=== PATIENT | female | born 1995 | race Hispanic/Latino ===

== ENCOUNTER 2023-10-31 22:18 | Emergency (ER) | payer BC ==
--- OUTSIDE RECORDS SUMMARY | 2023-10-31 22:21 | XMS REPORT | Continuity of Care Document ---
Author Name Unknown Address [address] [facility] [address] [place] [address] [facility] thconnect Address [address] [facility] [address] [place] [address] Care Team Providers Care Steel Analyst Name Role Phone Jen Cottrell Primary Care Physician [phone] Jen Cottrell Attending Clinician [phone] JEN PERRY Attending Clinician Unavailable YOUSUF SHERMAN Attending Clinician Unavailable HANNAH MILES Attending Clinician Cathy vailable Payers Payer Name Policy Type Policy Number Effective Date Expirati on Date Source Problems Condition Name Condition Details Condition Category Status Onset Date Resolution Date Last Treatment Date Treating Clinician Comments Source Rubella immune Rubella immune Disease Active 01-16 00:00: 00 [facility] 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 joel sites 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 joel sites Disease Active 01-16 00:00: 00 [facility] UTI (urinary tract infection) UTI (urinary tract infection) Disease Active 01-16 00:00: 00 [facility] Allergies, Adverse Reactions, Alerts Allergy Name Allergy Type Status Severity Reaction(s) Onset Date Inactive Date Treating Clinician Comments Source NO KNOWN ALLERGIE S Drug Class Active [facility] Social History Social Habit Start Date Stop Date Quantity Comments Source History SDOH Alcohol Frequency [facility] History SDOH Alcohol Std Drinks [facility] History SDOH Alcohol Binge [facility] Exposure to SARS-CoV-2 (event) Yes [facility] Alcohol intake 2021-04-23 00:00:00 2021-04-23 00:00:00 Current drinker of alcohol (finding) [facility] Alcohol Comment 2021-02-07 00:00:00 2021-02-07 00:00:00 Weekly [facility] Sex Assigned At 1995 00:00:00 1995 00:00:00 [facility] Smoking Status Start Date Stop Date Source Never smoker [facility] Medications Ordered Medication Name Filled Medication Name Start Date Stop Date Current Medication? Ordering Clinician Indication Dosage Frequency Signature (SIG) Comments Components Source TAKE ONE (1) TABLET(S) BY MOUTH TODAY, THEN ONE (1) TABLET(S) IN 48 TO 72 HOURS. 03-10 00:00: 00 No 150 TAKE 1 TABLET DAILY. 03-04 00:00: 00 No 2535 TAKE ONE (1) TABLET(S) BY MOUTH DAILY. 03-03 00:00: 00 No 10 Lexapro 10 mg tablet 01-01 00:00: 00 No 1mg TAKE ONE-HALF (1/2) TABLET(S) BY MOUTH ONCE A DAY FOR 7 DAYS, THEN INCREASE TO ONE (1) TABLET(S) ONCE A DAY THE NEXT 7 DAYS. 01-01 00:00: 00 No Dose Unknown 01-01 00:00: 00 No TAKE ONE-HALF (1/2) TABLET(S) BY MOUTH ONCE A DAY FOR 7 DAYS, THEN INCREASE TO ONE (1) TABLET(S) ONCE A DAY THE NEXT 7 DAYS. 01-01 00:00: 00 No Dose Unknown 0 01-01 00:00: 00 No Dose Unknown 12-23 00:00: 00 No Dose Unknown 12-23 00:00: 00 No fluconazole 150 mg tablet 0 12-22 00:00: 00 No mg Dose Unknown 0 12-22 00:00: 00 No fluconazole 150 mg tablet 12-22 00:00: 00 No mg Dose Unknown 12-22 00:00: 00 No Lexapro 10 mg tablet 12-18 00:00: 00 No 1mg Lexapro 10 mg tablet 12-18 00:00: 00 No 1mg Dose Unknown 12-16 00:00: 00 No Dose Unknown 12-16 00:00: 00 No No known medications 04-23 14:30: 15 No [facility] Depo-Doula a 150 mg/mL intramuscul ar syringe 11-09 00:00: 00 No 1mg/mL Depo-Doula a 150 mg/mL intramuscul ar syringe 11-09 00:00: 00 No 1mg/mL Vital Signs Vital Name Observation Time Observation Value Comments S ource Systolic blood pressure 2021-04-23 19:10:00 119 mm[Hg] [facility] Diastolic blood pressure 2021-04-23 19:10:00 81 mm[Hg] [facility] Heart rate 2021-04-23 19:10:00 76 /min [facility] Body temperature 2021-04-23 19:10:00 36.94 Eloisa [facility] Body height 2021-04-23 19:10:00 160 cm [facility] Body weight 2021-04-23 19:10:00 70.308 kg [facility] BMI 2021-04-23 19:10:00 27.46 kg/m2 [facility] Oxygen saturation in Arterial blood by Pulse oximetry 2021-04-23 19:10:00 98 /min [facility] BP Systolic 2022-03-11 14:49:00 121 mm[Hg] BP Diastolic 2022-03-11 14:49:00 82 mm[Hg] Weight Measured 2022-03-11 14:49:00 186.40 pounds Height Measured 2022-03-11 14:49:00 64.00 inches Body Temperature 2022-03-11 14:49:00 98.60 degrees Heart Rate 2022-03-11 14:49:00 102.00 /min Respiratory Rate 2022-03-11 14:49:00 16.00 /min BP Systolic 2022-03-04 08:22:00 BP Diastolic 2022-03-04 08:22:00 Weight Measured 2022-03-04 08:22:00 184.00 pounds Height Measured 2022-03-04 08:22:00 64.00 inches Body Temperature 2022-03-04 08:22:00 Heart Rate 2022-03-04 08:22:00 Respiratory Rate 2022-03-04 08:22:00 BP Systolic 2022-01-29 13:26:00 136 mm[Hg] BP Diastolic 2022-01-29 13:26:00 79 mm[Hg] Weight Measured 2022-01-29 13:26:00 180.00 pounds Height Measured 2022-01-29 13:26:00 64.00 inches Body Temperature 2022-01-29 13:26:00 98.50 degrees Heart Rate 2022-01-29 13:26:00 85.00 /min Respiratory Rate 2022-01-29 13:26:00 BP Systolic 2021-12-16 14:52:00 138 mm[Hg] BP Diastolic 2021-12-16 14:52:00 84 mm[Hg] Weight Measured 2021-12-16 14:52:00 173.60 pounds Height Measured 2021-12-16 14:52:00 64.00 inches Body Temperature 2021-12-16 14:52:00 Heart Rate 2021-12-16 14:52:00 91.00 /min Respiratory Rate 2021-12-16 14:52:00 BP Systolic 2020-08-24 08:15:00 116 mm[Hg] BP Diastolic 2020-08-24 08:15:00 80 mm[Hg] Weight Measured 2020-08-24 08:15:00 170.60 pounds Height Measured 2020-08-24 08:15:00 64.00 inches Body Temperature 2020-08-24 08:15:00 98.50 degrees Heart Rate 2020-08-24 08:15:00 91.00 /min Respiratory Rate 2020-08-24 08:15:00 Weight Measured 2020-06-05 08:08:00 170.20 pounds Height Measured 2020-06-05 08:08:00 64.00 inches Body Temperature 2020-06-05 08:08:00 98.10 degrees Heart Rate 2020-06-05 08:08:00 72.00 /min Respiratory Rate 2020-06-05 08:08:00 17.00 /min BP Systolic 2020-06-05 08:08:00 116 mm[Hg] BP Diastolic 2020-06-05 08:08:00 75 mm[Hg] BP Systolic 2020-05-29 08:13:00 125 mm[Hg] BP Diastolic 2020-05-29 08:13:00 87 mm[Hg] Weight Measured 2020-05-29 08:13:00 172.00 pounds Height Measured 2020-05-29 08:13:00 64.00 inches Body Temperature 2020-05-29 08:13:00 97.90 degrees Heart Rate 2020-05-29 08:13:00 76.00 /min Respiratory Rate 2020-05-29 08:13:00 BP Systolic 2020-05-03 09:19:00 127 mm[Hg] BP Diastolic 2020-05-03 09:19:00 80 mm[Hg] Weight Measured 2020-05-03 09:19:00 170.20 pounds Height Measured 2020-05-03 09:19:00 64.00 inches Body Temperature 2020-05-03 09:19:00 97.80 degrees Heart Rate 2020-05-03 09:19:00 73.00 /min Respiratory Rate 2020-05-03 09:19:00 BP Systolic 2019-12-05 11:18:00 124 mm[Hg] BP Diastolic 2019-12-05 11:18:00 80 mm[Hg] Weight Measured 2019-12-05 11:18:00 168.20 pounds Height Measured 2019-12-05 11:18:00 64.00 inches Body Temperature 2019-12-05 11:18:00 98.80 degrees Heart Rate 2019-12-05 11:18:00 78.00 /min Respiratory Rate 2019-12-05 11:18:00 BP Systolic 2019-09-09 08:29:00 123 mm[Hg] BP Diastolic 2019-09-09 08:29:00 78 mm[Hg] Weight Measured 2019-09-09 08:29:00 162.20 pounds Height Measured 2019-09-09 08:29:00 64.00 inches Body Temperature 2019-09-09 08:29:00 98.40 degrees Heart Rate 2019-09-09 08:29:00 83.00 /min Respiratory Rate 2019-09-09 08:29:00 17.00 /min BP Systolic 2018-06-03 17:34:00 116 mm[Hg] BP Diastolic 2018-06-03 17:34:00 72 mm[Hg] Weight Measured 2018-06-03 17:34:00 162.00 pounds Height Measured 2018-06-03 17:34:00 64.00 inches Body Temperature 2018-06-03 17:34:00 98.40 degrees Heart Rate 2018-06-03 17:34:00 70.00 /min Respiratory Rate 2018-06-03 17:34:00 18.00 /min BP Systolic 2018-05-27 17:47:00 125 mm[Hg] BP Diastolic 2018-05-27 17:47:00 76 mm[Hg] Weight Measured 2018-05-27 17:47:00 161.60 pounds Height Measured 2018-05-27 17:47:00 64.00 inches Body Temperature 2018-05-27 17:47:00 98.40 degrees Heart Rate 2018-05-27 17:47:00 69.00 /min Respiratory Rate 2018-05-27 17:47:00 16.00 /min Plan of Care Planned Activity Planned Date Details Comments Source Goal Plan of Care Note [code = 57640-5] Goal Plan of Care Note [code = 71595-8] Goal Plan of Care Note [code = 69831-8] Goal Plan of Care Note [code = 89665-7] Goal Plan of Care Note [code = 15505-5] Goal Plan of Care Note [code = 62510-1] Goal Plan of Care Note [code = 80184-5] Goal Plan of Care Note [code = 78035-0] Goal Plan of Care Note [code = 11449-6] Goal Plan of Care Note [code = 87659-0] Goal Plan of Care Note [code = 43007-9] Goal Plan of Care Note [code = 30982-4] Goal Plan of Care Note [code = 37651-6] Goal Plan of Care Note [code = 18887-0] Goal Plan of Care Note [code = 13216-3] Goal Plan of Care Note [code = 94277-1] Goal Plan of Care Note [code = 28773-2] Goal Plan of Care Note [code = 49354-1] Goal Plan of Care Note [code = 50450-0] Goal Plan of Care Note [code = 91783-1] Goal Plan of Care Note [code = 93192-2] Goal Plan of Care Note [code = 93065-8] Goal Plan of Care Note [code = 24217-0] Goal Plan of Care Note [code = 51773-2] Goal Plan of Care Note [code = 37407-4] Goal Plan of Care Note [code = 94150-2] Goal Plan of Care Note [code = 59915-5] Goal Plan of Care Note [code = 85000-5] Goal Plan of Care Note [code = 71143-2] Goal Plan of Care Note [code = 63994-6] Goal Plan of Care Note [code = 56799-7] Goal Plan of Care Note [code = 29313-2] Goal Plan of Care Note [code = 99416-2] Goal Plan of Care Note [code = 27332-7] Goal Plan of Care Note [code = 14232-8] Goal Plan of Care Note [code = 58368-2] Goal Plan of Care Note [code = 04689-5] Goal Plan of Care Note [code = 58445-2] Goal Plan of Care Note [code = 33974-3] Goal Plan of Care Note [code = 91913-3] Goal Plan of Care Note [code = 39429-9] Goal Plan of Care Note [code = 07968-2] Goal Plan of Care Note [code = 71180-8] Goal Plan of Care Note [code = 00285-7] Goal Plan of Care Note [code = 38546-1] Goal Plan of Care Note [code = 87076-9] Goal Plan of Care Note [code = 13672-6] Goal Plan of Care Note [code = 75271-1] Goal Plan of Care Note [code = 28128-3] Goal Plan of Care Note [code = 76770-5] Goal Plan of Care Note [code = 29499-9] Goal Plan of Care Note [code = 02223-4] Encounters Start Date/Time End Date/Time Encounter Type Admission Type Attending Clinicians Care Facility Care Department Encounter ID Source 2022-12-18 09:10:46 2022-12-18 09:10:46 Outpatient [facility] [id number] Gray Nolan 2022-07-14 08:23:45 2022-07-14 08:23:45 Outpatient [facility] SFA [id number] Gray Nolan 2022-03-11 00:00:00 2022-03-11 00:00:00 Outpatient Visit [id number] 2022-03-04 00:00:00 2022-03-04 00:00:00 Outpatient Visit [id number] 2022-01-29 00:00:00 2022-01-29 00:00:00 Outpatient Visit [id number] 2021-04-23 14:06:44 2021-04-23 14:44:00 Office Visit Jen [facility] Medical Office Building [id number] [facility] 2021-04-23 14:00:00 2021-04-23 14:00:00 Outpatient JEN BURDEN [facility] [id number] [facility] 2021-02-07 15:45:00 2021-02-07 15:45:00 Outpatient YOUSUF MC [facility] [id number] [facility] 2020-12-21 13:42:00 2020-12-21 13:42:00 Outpatient R HANNAH [facility] [id number] [facility] Results Test Description Test Time Test Comments Results Result Co mments Source HPV HIGH RISK WITH GENOTYPE, [id number] 15:54:37* Test Item Value Reference Range Interpretation Comme nts HPV HIGH RISK INTERP (test code = 06415) NEGATIVE NEGATIVE HPV 16 (test code = 17236) NEGATIVE HPV 18 (test code = 52635) NEGATIVE HPV, HR, OTHER GENOTYPES (test code = 06114) NEGATIVE Testing methodol ogy is real-time PCR utilizing hydrolysis probes with the Infoflowas 4800 system. The test individually detects genotypes 16 and 18, as well as the other 12 high risk types (31,33,35,39,45,51,52,56 ,58,59,66,68). The expected result is negative. A negative result does not rule out the presence of HPV not included in the genotype set, a low level of infection or specimen sampling error. UNLESS OTHERWISE INDICATED, ALL TESTING PERFORMED AT [facility] [address] [place] [address] MARKETING STRATEGY ANALYST: FLOR SENIOR M.D. CLIA NUMBER [id number] [facility] [place]. [id number] VAGINAL PATHOGENS DNA [id number] 14:55:40* Test Item Value Reference Range Interpretation Comme nts EDNA SPECIES (test code = 63501) NEGATIVE NEGATIVE G. VAGINALIS (test code = 33357) POSITIVE NEGATIVE A T. VAGINALIS (test code = 31092) NEGATIVE NEGATIVE Note: The BD [facility] VPIII Microbial Identification Testis a DNA probe test intended for use in the detectionand identification of Edna species, Gardnerellavaginalis and Trichomonas vaginalis nucleic acid. CT/NG, NAAT, [id number] 11:57:11* Test Item Value Reference Range Interpretation Comme nts CHLAMYDIA, NAAT, THINPREP (test code = 45213) NEGATIVE NEGATIVE A negative resul t does not exclude low level infection, specimensampling error, or collection error. Testing is performed with the Infoflowas 6800/8800 systems usingreal-time Polymerase Chain Reaction (PCR) method. GONORRHEA, NAAT, THINPREP (test code = 61254) NEGATIVE NEGATIVE A negative resul t does not exclude low level infection, specimensampling error, or collection error. Testing is performed with the Osbaldo Jayden 6800/8800 systems usingreal-time Polymerase Chain Reaction (PCR) method. HEPATITIS PANEL, [id number] 05:42:17* Test Item Value Reference Range Interpretation Comments HEPATITIS A TOTAL AB (test code = 2725) REACTIVE NON-REACTIVE A HEPATITIS B SURF AG (test code = 2739) NON-REACTIVE NON-REACTIVE HEP B CORE TOTAL AB (test code = 2729) NON-REACTIVE NON-REACTIVE HEPATITIS B SURFACE AB (test code = 2737) REACTIVE NON-REACTIVE A HEPATITIS C ANTIBODY (test code = 4675) NON-REACTIVE NON-REACTIVE INTERPRETATION HEPATITIS A: (test code = 2552) (NOTE) Hepatitis A sero logy consistent with past exposure or previousvaccination to hepatitis A virus. No evidence of current acutehepatitis A infection. INTERPRETATION HEPATITIS B: (test code = 83032) (NOTE) Hepatitis B sero logy consistent with immunity to hepatitis Bfrom previous hepatitis B vaccination. INTERPRETATION HEPATITIS C: (test code = 61148) (NOTE) Hepatitis C sero logy shows no evidence of exposure to hepatitisC virus at this time. It can take up to 12 months after exposure tothe hepatitis C virus for antibodies to become detectable in the blood in certain patients. HEPATITIS A [id number] 05:42:17* Test Item Value Reference Range Interpretation Comme nts HEPATITIS A IgM (test code = 2728) NON-REACTIVE NON-REACTIVE UNLESS OTHERW ISE INDICATED, ALL TESTING PERFORMED AT [facility] [address] [place] [address] MARKETING STRATEGY ANALYST: FLOR SENIOR M.D. CLIA NUMBER [id number] [facility] [place]. [id number] HIV 1/2 4TH GEN, RFLX [id number] 05:42:17* Test Item Value Reference Range Interpretation Comme nts HIV 1/2 4TH GEN, RFLX CONF ( test code = 3514) NON-REACTIVE NON-REACTIVE RPR REFLEX TO T. PALLIDUM - [id number] 04:15:20* Test Item Value Reference Range Interpretation Comme nts RPR (test code = 85320) NON-REACTIVE NON-REACTIVE RPR TITER (test code = 3500) NOT INDIC. TITER NOT INDIC. VARICELLA ZOSTER [id number] 16:21:12* Test Item Value Reference Range Interpretation Comme nts VARICELLA ZOSTER IgG (test code = 37792) 1906 INDEX SEE BELOW INTERPRETATION VZV IgG NEGATIVE . . . . . . . . . . . . INDEX <135 EQUIVOCAL. . . . . . . . . . . . INDEX 135-164 NOTE: CONSIDER RETESTING IN A CLINICALLY SUITABLE PERIOD OF TIME, NO SOONER THAN 1-2 WEEKS. POSITIVE . . . . . . . . . . . . INDEX >=165 RUBEOLA IgG [id number] 16:21:12* Test Item Value Reference Range Interpretation Comme [facility] RUBEOLA IgG ANTIBODY (test code = 89604) >260.0 AU/ML SEE BELOW INTERPRETATION R UBEOLA IgG NEGATIVE . . . . . . . . . . . . AU/ML <13.5 EQUIVOCAL. . . . . . . . . . . . AU/ML 13.5-16.4 NOTE: CONSIDER RETESTING IN A CLINICALLY SUITABLE PERIOD OF TIME, NO SOONER THAN 1-2 WEEKS. POSITIVE . . . . . . . . . . . . AU/ML >=16.5 MUMPS VIRUS [id number] 16:21:12* Test Item Value Reference Range Interpretation Comme [facility] MUMPS VIRUS IgG (test code = 4585) 78.7 AU/ML SEE BELOW INTERPRETATION M UMPS IgG NEGATIVE . . . . . . . . . . . . AU/ML <9.0 EQUIVOCAL. . . . . . . . . . . . AU/ML 9.0-10.9 POSITIVE . . . . . . . . . . . . AU/ML >=11.0 HEPATITIS B SURFACE [id number] 06:09:56* Test Item Value Reference Range Interpretation Comme [facility] HEPATITIS B SURFACE AB (test code = 2737) REACTIVE NON-REACTIVE A RUBELLA ANTIBODY [id number] 05:28:25* Test Item Value Reference Range Interpretation Comme [facility] RUBELLA ANTIBODY SCREEN (test code = 4600) 456 IU/ML SEE BELOW INTERPRETATION R UBELLA IgG NON-REACTIVE/NON-IMMUNE . . . . . . . IU/ML <10 REACTIVE/IMMUNE . . . . . . . . . . . IU/ML >=10 RUBELLA IgG INTERP (test code = 84483) REACTIVE REACTIVE UNLESS OTHER ALVAREZ INDICATED, ALL TESTING PERFORMED [facility] [address] [place] [address] MARKETING STRATEGY ANALYST: JOSE LUIS SANTOS M.D. CLIA NUMBER [id number] [place]. [id number] HEPATITIS B SURFACE [id number] 00:00:00* Test Item Value Reference Range Interpretation Comme nts HEPATITIS B SURFACE AB (test code = 2737) REACTIVE HEPATITIS B SURFACE [id number] 00:00:00* Test Item Value Reference Range Interpretation Comme nts HEPATITIS B SURFACE AB (test code = 2737) REACTIVE VARICELLA ZOSTER [id number] 00:00:00* Test Item Value Reference Range Interpretation Comme nts VARICELLA ZOSTER IgG (test c ode = 57846) 1906 INDEX VARICELLA ZOSTER [id number] 00:00:00* Test Item Value Reference Range Interpretation Comme nts VARICELLA ZOSTER IgG (test c ode = 98044) 1906 INDEX RUBEOLA IgG [id number] 00:00:00* Test Item Value Reference Range Interpretation Comme nts RUBEOLA IgG ANTIBODY (test c ode = 55505) >260.0 AU/ML RUBEOLA IgG [id number] 00:00:00* Test Item Value Reference Range Interpretation Comme nts RUBEOLA IgG ANTIBODY (test c ode = 14565) >260.0 AU/ML MUMPS VIRUS [id number] 00:00:00* Test Item Value Reference Range Interpretation Comme nts MUMPS VIRUS IgG (test code = 4585) 78.7 AU/ML MUMPS VIRUS [id number] 00:00:00* Test Item Value Reference Range Interpretation Comme nts MUMPS VIRUS IgG (test code = 4585) 78.7 AU/ML RUBELLA ANTIBODY [id number] 00:00:00* Test Item Value Reference Range Interpretation Comme nts RUBELLA ANTIBODY SCREEN (kong t code = 4600) 456 IU/ML RUBELLA IgG INTERP (test cod e = 56968) REACTIVE RUBELLA ANTIBODY [id number] 00:00:00* Test Item Value Reference Range Interpretation Comme nts RUBELLA ANTIBODY SCREEN (kong t code = 4600) 456 IU/ML RUBELLA IgG INTERP (test cod e = 51002) REACTIVE LIPID [id number] 07:21:00* Test Item Value Reference Range Interpretation Comme nts CHOLESTEROL (test code = 2210) 157 MG/DL <200 TRIGLYCERIDES (test code = 2232) 92 MG/DL <150 HDL CHOLESTEROL (test code = 2220) 66 MG/DL >39 CALC LDL CHOL (test code = 2237) 73 MG/DL <100 NOTE: CALCULATED LDL IS BASED ON DARIEN-GOODSON METHOD WHICHINCLUDES ADJUSTABLE TRIGLYCERIDE:VLDL CHOLESTEROL RATIO.THIS FACTOR VARIES BY MEASURED TRIGLYCERIDE AND NON-HDLCHOLESTEROL CONCENTRATIONS WITH INCREASED CALCULATED LDL SEENIN HIGHER TRIGLYCERIDE OR LOWER NON-HDL SPECIMENS. FOR MOREINFORMATION, SEE CLIENT ANNOUNCEMENT AT [email or web address] RISK RATIO LDL/HDL (test code = 223) 1.11 RATIO <3.22 COMPREHENSIVE METABOLIC [id number] 07:21:00* Test Item Value Reference Range Interpretation Comme nts GLUCOSE (test code = 221) 112 MG/DL 70-99 H BUN (test code = 2207) 15 MG/DL 6-20 CREATININE (test code = 221) 0.83 MG/DL 0.60-1.30 eGFR (2020 CKD-EPI) (test code = 27148) 98 ML/MIN/1.73 >60 CALC BUN/CREAT (test code = 2235) 18 RATIO 6-28 SODIUM (test code = 223) 139 MEQ/L 133-146 POTASSIUM (test code = 2228) 4.6 MEQ/L 3.5-5.4 CHLORIDE (test code = 2215) 102 MEQ/L 95-107 CARBON DIOXIDE (test code = 2206) 25 MEQ/L 19-31 CALCIUM (test code = 220) 9.3 MG/DL 8.5-10.5 PROTEIN, TOTAL (test code = 222) 6.9 G/DL 6.1-8.3 ALBUMIN (test code = 2201) 4.2 G/DL 3.5-5.2 CALC GLOBULIN (test code = 2240) 2.7 G/DL 1.9-3.7 CALC A/G RATIO (test code = 2234) 1.6 RATIO 1.0-2.6 BILIRUBIN, TOTAL (test code = 2207) 0.2 MG/DL See_Comment [Automated me ssage] The system which generated this result transmitted reference range: <=1.2. The reference range was not used to interpret this result as normal/abnormal. ALKALINE PHOSPHATASE (test code = 2204) 72 U/L 40-112 AST (test code = 2218) 17 U/L 9-40 ALT (test code = 2219) 27 U/L 5-40 UNLESS OTHERWISE INDICATED, ALL TESTING PERFORMED [facility] [address] [place] [address] MARKETING STRATEGY ANALYST: JOSE LUIS SANTOS M.D. [place] NUMBER [id number] [facility] [place]. [id number] HEMOGLOBIN [id number] 06:03:39* Test Item Value Reference Range Interpretation Comme nts HEMOGLOBIN A1c (test code = 70852) 6.1 % 4.2-5.6 H CBC W/AUTO DIFF WITH [id number] 05:15:42* Test Item Value Reference Range Interpretation Comme nts WBC (test code = 1001) 7.3 K/UL 3.5-11.0 RBC (test code = 1002) 5.25 M/UL 3.80-5.40 HEMOGLOBIN (test code = 1003) 13.3 G/DL 11.5-15.5 HEMATOCRIT (test code = 1004) 41.9 % 34.0-45.0 MCV (test code = 1005) 79.8 fL 80.0-99.0 L MCH (test code = 1006) 25.3 PG 25.0-33.0 MCHC (test code = 1007) 31.7 G/DL 31.0-36.0 RDW (test code = 1038) 19.2 % 11.5-15.0 H NEUTROPHILS (test code = 1008) 60.8 % LYMPHOCYTES (test code = 1010) 29.6 % MONOCYTES (test code = 1011) 6.7 % EOSINOPHILS (test code = 1012) 1.9 % BASOPHILS (test code = 1013) 0.7 % IMMATURE GRANULOCYTES (test code = 1036) 0.3 % NUCLEATED RBCS (test code = 1065) 0.0 /100 WBC'S See_Comment [Automated messa ge] The system which generated this result transmitted reference range: 0.0. The reference range was not used to interpret this result as normal/abnormal. PLATELET COUNT (test code = 1015) 285 K/UL 130-400 ABSOLUTE NEUTROPHILS (test code = 1066) 4.44 K/UL 1.50-7.50 ABSOLUTE LYMPHOCYTES (test code = 1067) 2.16 K/UL 1.00-4.00 ABSOLUTE MONOCYTES (test code = 1068) 0.49 K/UL 0.20-1.00 ABSOLUTE EOSINOPHILS (test code = 1040) 0.14 K/UL 0.00-0.50 ABSOLUTE BASOPHILS (test code = 1069) 0.05 K/UL 0.00-0.20 ABS IMMATURE GRANULOCYTES (test code = 1020) 0.02 K/UL 0.00-0.10 ABS NUCLEATED RBCS (test code = 89045) 0.00 K/UL 0.00-0.11 CBC W/AUTO [id number] 00:00:00* Test Item Value Reference Range Interpretation Comme nts WBC (test code = 1001) 7.3 K/UL RBC (test code = 1002) 5.25 M/UL HEMOGLOBIN (test code = 1003) 13.3 G/DL HEMATOCRIT (test code = 1004) 41.9 % MCV (test code = 1005) 79.8 fL MCH (test code = 1006) 25.3 PG MCHC (test code = 1007) 31.7 G/DL RDW (test code = 1038) 19.2 % NEUTROPHILS (test code = 1008) 60.8 % LYMPHOCYTES (test code = 1010) 29.6 % MONOCYTES (test code = 1011) 6.7 % EOSINOPHILS (test code = 1012) 1.9 % BASOPHILS (test code = 1013) 0.7 % IMMATURE GRANULOCYTES (test code = 1036) 0.3 % NUCLEATED RBCS (test code = 1065) 0.0 /100WBC'S PLATELET COUNT (test code = 1015) 285 K/UL ABSOLUTE NEUTROPHILS (test c ode = 1066) 4.44 K/UL ABSOLUTE LYMPHOCYTES (test c ode = 1067) 2.16 K/UL ABSOLUTE MONOCYTES (test cod e = 1068) 0.49 K/UL ABSOLUTE EOSINOPHILS (test c ode = 1040) 0.14 K/UL ABSOLUTE BASOPHILS (test cod e = 1069) 0.05 K/UL ABS IMMATURE GRANULOCYTES (t est code = 1020) 0.02 K/UL ABS NUCLEATED RBCS (test cod e = 23829) 0.00 K/UL CBC W/AUTO [id number] 00:00:00* Test Item Value Reference Range Interpretation Comme nts WBC (test code = 1001) 7.3 K/UL RBC (test code = 1002) 5.25 M/UL HEMOGLOBIN (test code = 1003) 13.3 G/DL HEMATOCRIT (test code = 1004) 41.9 % MCV (test code = 1005) 79.8 fL MCH (test code = 1006) 25.3 PG MCHC (test code = 1007) 31.7 G/DL RDW (test code = 1038) 19.2 % NEUTROPHILS (test code = 1008) 60.8 % LYMPHOCYTES (test code = 1010) 29.6 % MONOCYTES (test code = 1011) 6.7 % EOSINOPHILS (test code = 1012) 1.9 % BASOPHILS (test code = 1013) 0.7 % IMMATURE GRANULOCYTES (test code = 1036) 0.3 % NUCLEATED RBCS (test code = 1065) 0.0 /100WBC'S PLATELET COUNT (test code = 1015) 285 K/UL ABSOLUTE NEUTROPHILS (test c ode = 1066) 4.44 K/UL ABSOLUTE LYMPHOCYTES (test c ode = 1067) 2.16 K/UL ABSOLUTE MONOCYTES (test cod e = 1068) 0.49 K/UL ABSOLUTE EOSINOPHILS (test c ode = 1040) 0.14 K/UL ABSOLUTE BASOPHILS (test cod e = 1069) 0.05 K/UL ABS IMMATURE GRANULOCYTES (t est code = 1020) 0.02 K/UL ABS NUCLEATED RBCS (test cod e = 59842) 0.00 K/UL HEMOGLOBIN [id number] 00:00:00* Test Item Value Reference Range Interpretation Comme nts HEMOGLOBIN A1c (test code = 21394) 6.1 % HEMOGLOBIN [id number] 00:00:00* Test Item Value Reference Range Interpretation Comme nts HEMOGLOBIN A1c (test code = 61155) 6.1 % LIPID [id number] 00:00:00* Test Item Value Reference Range Interpretation Comme nts CHOLESTEROL (test code = 2210) 157 MG/DL TRIGLYCERIDES (test code = 2232) 92 MG/DL HDL CHOLESTEROL (test code = 2220) 66 MG/DL CALC LDL CHOL (test code = 2237) 73 MG/DL RISK RATIO LDL/HDL (test cod e = 2238) 1.11 RATIO COMPREHENSIVE METABOLIC [id number] 00:00:00* Test Item Value Reference Range Interpretation Comme nts GLUCOSE (test code = 2217) 112 MG/DL BUN (test code = 2208) 15 MG/DL CREATININE (test code = 2214) 0.83 MG/DL eGFR (2020 CKD-EPI) (test co de = 50755) 98 ML/MIN/1.73 CALC BUN/CREAT (test code = 2235) 18 RATIO SODIUM (test code = 2231) 139 MEQ/L POTASSIUM (test code = 2228) 4.6 MEQ/L CHLORIDE (test code = 2215) 102 MEQ/L CARBON DIOXIDE (test code = 2206) 25 MEQ/L CALCIUM (test code = 2209) 9.3 MG/DL PROTEIN, TOTAL (test code = 2229) 6.9 G/DL ALBUMIN (test code = 2201) 4.2 G/DL CALC GLOBULIN (test code = 2240) 2.7 G/DL CALC A/G RATIO (test code = 2234) 1.6 RATIO BILIRUBIN, TOTAL (test code = 2207) 0.2 MG/DL ALKALINE PHOSPHATASE (test code = 2204) 72 U/L AST (test code = 2218) 17 U/L ALT (test code = 2219) 27 U/L CBC W/AUTO [id number] 00:00:00* Test Item Value Reference Range Interpretation Comme nts WBC (test code = 1001) 7.3 K/UL RBC (test code = 1002) 5.25 M/UL HEMOGLOBIN (test code = 1003) 13.3 G/DL HEMATOCRIT (test code = 1004) 41.9 % MCV (test code = 1005) 79.8 fL MCH (test code = 1006) 25.3 PG MCHC (test code = 1007) 31.7 G/DL RDW (test code = 1038) 19.2 % NEUTROPHILS (test code = 1008) 60.8 % LYMPHOCYTES (test code = 1010) 29.6 % MONOCYTES (test code = 1011) 6.7 % EOSINOPHILS (test code = 1012) 1.9 % BASOPHILS (test code = 1013) 0.7 % IMMATURE GRANULOCYTES (test code = 1036) 0.3 % NUCLEATED RBCS (test code = 1065) 0.0 /100WBC'S PLATELET COUNT (test code = 1015) 285 K/UL ABSOLUTE NEUTROPHILS (test c ode = 1066) 4.44 K/UL ABSOLUTE LYMPHOCYTES (test c ode = 1067) 2.16 K/UL ABSOLUTE MONOCYTES (test cod e = 1068) 0.49 K/UL ABSOLUTE EOSINOPHILS (test c ode = 1040) 0.14 K/UL ABSOLUTE BASOPHILS (test cod e = 1069) 0.05 K/UL ABS IMMATURE GRANULOCYTES (t est code = 1020) 0.02 K/UL ABS NUCLEATED RBCS (test cod e = 87386) 0.00 K/UL CBC W/AUTO [id number] 00:00:00* Test Item Value Reference Range Interpretation Comme nts WBC (test code = 1001) 7.3 K/UL RBC (test code = 1002) 5.25 M/UL HEMOGLOBIN (test code = 1003) 13.3 G/DL HEMATOCRIT (test code = 1004) 41.9 % MCV (test code = 1005) 79.8 fL MCH (test code = 1006) 25.3 PG MCHC (test code = 1007) 31.7 G/DL RDW (test code = 1038) 19.2 % NEUTROPHILS (test code = 1008) 60.8 % LYMPHOCYTES (test code = 1010) 29.6 % MONOCYTES (test code = 1011) 6.7 % EOSINOPHILS (test code = 1012) 1.9 % BASOPHILS (test code = 1013) 0.7 % IMMATURE GRANULOCYTES (test code = 1036) 0.3 % NUCLEATED RBCS (test code = 1065) 0.0 /100WBC'S PLATELET COUNT (test code = 1015) 285 K/UL ABSOLUTE NEUTROPHILS (test c ode = 1066) 4.44 K/UL ABSOLUTE LYMPHOCYTES (test c ode = 1067) 2.16 K/UL ABSOLUTE MONOCYTES (test cod e = 1068) 0.49 K/UL ABSOLUTE EOSINOPHILS (test c ode = 1040) 0.14 K/UL ABSOLUTE BASOPHILS (test cod e = 1069) 0.05 K/UL ABS IMMATURE GRANULOCYTES (t est code = 1020) 0.02 K/UL ABS NUCLEATED RBCS (test cod e = 84133) 0.00 K/UL CBC W/AUTO [id number] 00:00:00* Test Item Value Reference Range Interpretation Comme nts WBC (test code = 1001) 7.3 K/UL RBC (test code = 1002) 5.25 M/UL HEMOGLOBIN (test code = 1003) 13.3 G/DL HEMATOCRIT (test code = 1004) 41.9 % MCV (test code = 1005) 79.8 fL MCH (test code = 1006) 25.3 PG MCHC (test code = 1007) 31.7 G/DL RDW (test code = 1038) 19.2 % NEUTROPHILS (test code = 1008) 60.8 % LYMPHOCYTES (test code = 1010) 29.6 % MONOCYTES (test code = 1011) 6.7 % EOSINOPHILS (test code = 1012) 1.9 % BASOPHILS (test code = 1013) 0.7 % IMMATURE GRANULOCYTES (test code = 1036) 0.3 % NUCLEATED RBCS (test code = 1065) 0.0 /100WBC'S PLATELET COUNT (test code = 1015) 285 K/UL ABSOLUTE NEUTROPHILS (test c ode = 1066) 4.44 K/UL ABSOLUTE LYMPHOCYTES (test c ode = 1067) 2.16 K/UL ABSOLUTE MONOCYTES (test cod e = 1068) 0.49 K/UL ABSOLUTE EOSINOPHILS (test c ode = 1040) 0.14 K/UL ABSOLUTE BASOPHILS (test cod e = 1069) 0.05 K/UL ABS IMMATURE GRANULOCYTES (t est code = 1020) 0.02 K/UL ABS NUCLEATED RBCS (test cod e = 42239) 0.00 K/UL HEMOGLOBIN [id number] 00:00:00* Test Item Value Reference Range Interpretation Comme nts HEMOGLOBIN A1c (test code = 97728) 6.1 % HEMOGLOBIN [id number] 00:00:00* Test Item Value Reference Range Interpretation Comme nts HEMOGLOBIN A1c (test code = 82626) 6.1 % HEMOGLOBIN [id number] 00:00:00* Test Item Value Reference Range Interpretation Comme nts HEMOGLOBIN A1c (test code = 98277) 6.1 % LIPID [id number] 00:00:00* Test Item Value Reference Range Interpretation Comme nts CHOLESTEROL (test code = 2210) 157 MG/DL TRIGLYCERIDES (test code = 2232) 92 MG/DL HDL CHOLESTEROL (test code = 2220) 66 MG/DL CALC LDL CHOL (test code = 2237) 73 MG/DL RISK RATIO LDL/HDL (test cod e = 2238) 1.11 RATIO LIPID [id number] 00:00:00* Test Item Value Reference Range Interpretation Comme nts CHOLESTEROL (test code = 2210) 157 MG/DL TRIGLYCERIDES (test code = 2232) 92 MG/DL HDL CHOLESTEROL (test code = 2220) 66 MG/DL CALC LDL CHOL (test code = 2237) 73 MG/DL RISK RATIO LDL/HDL (test cod e = 2238) 1.11 RATIO COMPREHENSIVE METABOLIC [id number] 00:00:00* Test Item Value Reference Range Interpretation Comme nts GLUCOSE (test code = 2217) 112 MG/DL BUN (test code = 2208) 15 MG/DL CREATININE (test code = 2214) 0.83 MG/DL eGFR (2020 CKD-EPI) (test co de = 10360) 98 ML/MIN/1.73 CALC BUN/CREAT (test code = 2235) 18 RATIO SODIUM (test code = 2231) 139 MEQ/L POTASSIUM (test code = 2228) 4.6 MEQ/L CHLORIDE (test code = 2215) 102 MEQ/L CARBON DIOXIDE (test code = 2206) 25 MEQ/L CALCIUM (test code = 2209) 9.3 MG/DL PROTEIN, TOTAL (test code = 2229) 6.9 G/DL ALBUMIN (test code = 2201) 4.2 G/DL CALC GLOBULIN (test code = 2240) 2.7 G/DL CALC A/G RATIO (test code = 2234) 1.6 RATIO BILIRUBIN, TOTAL (test code = 2207) 0.2 MG/DL ALKALINE PHOSPHATASE (test code = 2204) 72 U/L AST (test code = 2218) 17 U/L ALT (test code = 2219) 27 U/L COMPREHENSIVE METABOLIC [id number] 00:00:00* Test Item Value Reference Range Interpretation Comme nts GLUCOSE (test code = 2217) 112 MG/DL BUN (test code = 2208) 15 MG/DL CREATININE (test code = 2214) 0.83 MG/DL eGFR (2020 CKD-EPI) (test co de = 54837) 98 ML/MIN/1.73 CALC BUN/CREAT (test code = 2235) 18 RATIO SODIUM (test code = 2231) 139 MEQ/L POTASSIUM (test code = 2228) 4.6 MEQ/L CHLORIDE (test code = 2215) 102 MEQ/L CARBON DIOXIDE (test code = 2206) 25 MEQ/L CALCIUM (test code = 2209) 9.3 MG/DL PROTEIN, TOTAL (test code = 2229) 6.9 G/DL ALBUMIN (test code = 2201) 4.2 G/DL CALC GLOBULIN (test code = 2240) 2.7 G/DL CALC A/G RATIO (test code = 2234) 1.6 RATIO BILIRUBIN, TOTAL (test code = 2207) 0.2 MG/DL ALKALINE PHOSPHATASE (test code = 2204) 72 U/L AST (test code = 2218) 17 U/L ALT (test code = 2219) 27 U/L PAP TEST, THINPREP, [id number] 18:25:53* Test Item Value Reference Range Interpretation Comme nts SOURCE: (test code = 8001) Cervical/End ocervical SLIDES: (test code = 8011) 1 LMP: (test code = 8021) 2020 SPECIMEN ADEQUACY: (test code = 24517) (NOTE) Satisfactory for evaluation. Endocervical cells/transformation zone component present. INTERPRETATION: (test code = 51141) ASCUS/EPITH. ABNORMALITY; SEE BELOW A -- ---- EPITHELIAL CELL ABNORMALITY Atypical squamous cells of undetermined significance (ASC-US) OTHER COMMENTS: (test code = 8081) (NOTE) Fungal organisms consistent with Edna present. SKOOG OPERATOR: (test code = 8101) SUZANNE BEAVERS( CP) PATHOLOGIST INTERPRETATION BY: (test code = 8122) Jm Braxton LOCATION: (test code = 28236) (NOTE) Specimens proces sed at [facility], [address] [place] [address], , CLIA: [id number] interpreted at [facility], [address] [place] [address],Pathology Department Lower Level, [facility] [address], , CLIA: [id number] CPT: (test code = 8140) (NOTE) 01366, 06404 UNL ESS OTHERWISE INDICATED, COMPUTER AIDED AND SKOOG OPERATOR SCREENING PERFORMED. The Pap test is a screening test with an inherent, but low probability of error. Your patient should be reminded to consult you immediately if she experiences any suspicious signs or symptoms, regardless of her Pap test result. An alternate report format containing images or consolidated prior Pap history is available as applicable. PAP TEST, THINPREP, [id number] 00:00:00* Test Item Value Reference Range Interpretation Comme nts SOURCE: (test code = 8001) Cervical/Endo cervi courtney SLIDES: (test code = 8011) 1 LMP: (test code = 8021) 2020 SPECIMEN ADEQUACY: (test code = 69088) (NOTE) INTERPRETATION: (test code = 40966) ASCUS/EPITH. ABNORMALITY; SEE BELOW OTHER COMMENTS: (test code = 8081) (NOTE) SKOOG OPERATOR: (test code = 8101) MAXX SALVADOR,SUZANNE(ASCP) PATHOLOGIST INTERPRETATION BY: (test code = 8122) Jm Braxton LOCATION: (test code = 83935) (NOTE) CPT: (test code = 8140) (NOTE) PAP TEST, THINPREP, [id number] 00:00:00* Test Item Value Reference Range Interpretation Comme nts SOURCE: (test code = 8001) Cervical/Endo cervi courtney SLIDES: (test code = 8011) 1 LMP: (test code = 8021) 2020 SPECIMEN ADEQUACY: (test code = 63069) (NOTE) INTERPRETATION: (test code = 32152) ASCUS/EPITH. ABNORMALITY; SEE BELOW OTHER COMMENTS: (test code = 8081) (NOTE) SKOOG OPERATOR: (test code = 8101) SUZANNE BEAVERS(ASCP) PATHOLOGIST INTERPRETATION BY: (test code = 8122) Jm Braxton LOCATION: (test code = 77810) (NOTE) CPT: (test code = 8140) (NOTE) PAP TEST, THINPREP, [id number] 00:00:00* Test Item Value Reference Range Interpretation Comme nts SOURCE: (test code = 8001) Cervical/Endo cervi courtney SLIDES: (test code = 8011) 1 LMP: (test code = 8021) 2020 SPECIMEN ADEQUACY: (test code = 97425) (NOTE) INTERPRETATION: (test code = 60408) ASCUS/EPITH. ABNORMALITY; SEE BELOW OTHER COMMENTS: (test code = 8081) (NOTE) SKOOG OPERATOR: (test code = 8101) SUZANNE BEAVERS(ASCP) PATHOLOGIST INTERPRETATION BY: (test code = 8122) Jm Braxton LOCATION: (test code = 68317) (NOTE) CPT: (test code = 8140) (NOTE) PAP TEST, THINPREP, [id number] 00:00:00* Test Item Value Reference Range Interpretation Comme nts SOURCE: (test code = 8001) Cervical/Endo cervi courtney SLIDES: (test code = 8011) 1 LMP: (test code = 8021) 2020 SPECIMEN ADEQUACY: (test code = 84845) (NOTE) INTERPRETATION: (test code = 64818) ASCUS/EPITH. ABNORMALITY; SEE BELOW OTHER COMMENTS: (test code = 8081) (NOTE) SKOOG OPERATOR: (test code = 8101) SUZANNE BEAVERS(ASCP) PATHOLOGIST INTERPRETATION BY: (test code = 8122) Jm Braxton LOCATION: (test code = 83188) (NOTE) CPT: (test code = 8140) (NOTE) CT/NG, TMA, [id number] 17:39:43* Test Item Value Reference Range Interpretation Comme nts GONORRHEA, TMA (test code = 43866) NEGATIVE NEGATIVE Assay methodolog y is nucleic acid amplification by maintenance services dispatcher mediated amplification (TMA) utilizing the Aptima Combo 2 Assay. CHLAMYDIA, TMA (test code = 16808) NEGATIVE NEGATIVE Assay methodolog y is nucleic acid amplification by maintenance services dispatcher mediated amplification (TMA) utilizing the Aptima Combo 2 Assay. UNLESS OTHERWISE INDICATED, ALL TESTING PERFORMED [facility] [employer] [employer] [address] [place] [address] MARKETING STRATEGY ANALYST: JOSE LUIS SANTOS M.D. CLIA NUMBER [id number] [place]. [id number] 05:11:05* Test Item Value Reference Range Interpretation Comme nts RPR RESULT (test code = 3501) NON-REACTIVE NON-REACTIVE RPR TITER (test code = 3500) NOT INDIC. TITER NOT INDIC. UNLESS OTHERWISE INDICATED, ALL TESTING PERFORMED [facility] [address] [place] [address] MARKETING STRATEGY ANALYST: JOSE LUIS SANTOS M.D. CLIA NUMBER [id number] [place]. [id number] HIV 1/2 4TH GEN, RFLX [id number] 04:59:07* Test Item Value Reference Range Interpretation Comme [facility] HIV 1/2 4TH GEN, RFLX CONF ( test code = 3514) NON-REACTIVE NON-REACTIVE HEPATITIS PANEL, [id number] 04:59:07* Test Item Value Reference Range Interpretation Comme nts HEPATITIS A IgM (test code = 79274) NON-REACTIVE NON-REACTIVE HEPATITIS B CORE IgM (test code = 4644) NON-REACTIVE NON-REACTIVE HEPATITIS B SURF AG (test code = 2739) NON-REACTIVE NON-REACTIVE HEPATITIS C ANTIBODY (test code = 4675) NON-REACTIVE NON-REACTIVE INTERPRETATION HEPATITIS A: (test code = 2552) (NOTE) Hepatitis A serology shows no evidence of acute hepatitis A. INTERPRETATION HEPATITIS B: (test code = 33349) (NOTE) Hepatitis B serology shows no evidence of acute hepatitis B andno indication of exposure to hepatitis B virus in the previous joe eight months. INTERPRETATION HEPATITIS C: (test code = 77994) (NOTE) Hepatitis C serology shows no evidence of exposure to hepatitisC virus at this time. It can take up to 12 months after exposure tothe hepatitis C virus for antibodies to become detectable in the blood in certain patients. HIV AB/AG COMBO RFLX [id number] 00:00:00* Test Item Value Reference Range Interpretation Comme nts HIV 1/2 4TH GEN, RFLX CONF ( test code = 3514) NON-REACTIVE ACUTE HEPATITIS [id number] 00:00:00* Test Item Value Reference Range Interpretation Comme nts HEPATITIS A IgM (test code = 10333) NON-REACTIVE HEPATITIS B CORE IgM (test c ode = 4644) NON-REACTIVE HEPATITIS B SURF AG (test co de = 2739) NON-REACTIVE HEPATITIS C ANTIBODY (test c ode = 4675) NON-REACTIVE INTERPRETATION HEPATITIS A: (test code = 2552) (NOTE) INTERPRETATION HEPATITIS B: (test code = 82738) (NOTE) INTERPRETATION HEPATITIS C: (test code = 11180) (NOTE) GC AND CHLAMYDIA AMPLIFIED, [id number] 00:00:00* Test Item Value Reference Range Interpretation Comme nts GONORRHEA, TMA (test code = 39748) NEGATIVE CHLAMYDIA, TMA (test code = 65064) NEGATIVE [id number] 00:00:00* Test Item Value Reference Range Interpretation Comme nts RPR RESULT (test code = 3501) NON-REACTIVE RPR TITER (test code = 3500) NOT INDIC. TITER [id number] 00:00:00* Test Item Value Reference Range Interpretation Comme nts RPR RESULT (test code = 3501) NON-REACTIVE RPR TITER (test code = 3500) NOT INDIC. TITER HIV AB/AG COMBO RFLX [id number] 00:00:00* Test Item Value Reference Range Interpretation Comme nts HIV 1/2 4TH GEN, RFLX CONF ( test code = 3514) NON-REACTIVE HIV AB/AG COMBO RFLX [id number] 00:00:00* Test Item Value Reference Range Interpretation Comme nts HIV 1/2 4TH GEN, RFLX CONF ( test code = 3514) NON-REACTIVE ACUTE HEPATITIS [id number] 00:00:00* Test Item Value Reference Range Interpretation Comme nts HEPATITIS A IgM (test code = 07208) NON-REACTIVE HEPATITIS B CORE IgM (test c ode = 4644) NON-REACTIVE HEPATITIS B SURF AG (test co de = 2739) NON-REACTIVE HEPATITIS C ANTIBODY (test c ode = 4675) NON-REACTIVE INTERPRETATION HEPATITIS A: (test code = 2552) (NOTE) INTERPRETATION HEPATITIS B: (test code = 93332) (NOTE) INTERPRETATION HEPATITIS C: (test code = 80321) (NOTE) ACUTE HEPATITIS [id number] 00:00:00* Test Item Value Reference Range Interpretation Comme nts HEPATITIS A IgM (test code = 81543) NON-REACTIVE HEPATITIS B CORE IgM (test c ode = 4644) NON-REACTIVE HEPATITIS B SURF AG (test co de = 0859) NON-REACTIVE HEPATITIS C ANTIBODY (test c ode = 4675) NON-REACTIVE INTERPRETATION HEPATITIS A: (test code = 2552) (NOTE) INTERPRETATION HEPATITIS B: (test code = 79017) (NOTE) INTERPRETATION HEPATITIS C: (test code = 22349) (NOTE) GC AND CHLAMYDIA AMPLIFIED, [id number] 00:00:00* Test Item Value Reference Range Interpretation Comme nts GONORRHEA, TMA (test code = 27719) NEGATIVE CHLAMYDIA, TMA (test code = 64179) NEGATIVE GC AND CHLAMYDIA AMPLIFIED, [id number] 00:00:00* Test Item Value Reference Range Interpretation Comme nts GONORRHEA, TMA (test code = 42633) NEGATIVE CHLAMYDIA, TMA (test code = 95029) NEGATIVE [id number] 00:00:00* Test Item Value Reference Range Interpretation Comme nts RPR RESULT (test code = 3501) NON-REACTIVE RPR TITER (test code = 3500) NOT INDIC. TITER [id number] 00:00:00* Test Item Value Reference Range Interpretation Comme nts RPR RESULT (test code = 3501) NON-REACTIVE RPR TITER (test code = 3500) NOT INDIC. TITER [id number] 00:00:00* Test Item Value Reference Range Interpretation Comme nts RPR RESULT (test code = 3501) NON-REACTIVE RPR TITER (test code = 3500) NOT INDIC. TITER HIV AB/AG COMBO RFLX [id number] 00:00:00* Test Item Value Reference Range Interpretation Comme nts HIV 1/2 4TH GEN, RFLX CONF ( test code = 3514) NON-REACTIVE GC AND CHLAMYDIA AMPLIFIED, [id number] 00:00:00* Test Item Value Reference Range Interpretation Comme nts GONORRHEA, TMA (test code = 21006) NEGATIVE CHLAMYDIA, TMA (test code = 31319) NEGATIVE ACUTE HEPATITIS [id number] 00:00:00* Test Item Value Reference Range Interpretation Comme nts HEPATITIS A IgM (test code = 38492) NON-REACTIVE HEPATITIS B CORE IgM (test c ode = 4644) NON-REACTIVE HEPATITIS B SURF AG (test co de = 2739) NON-REACTIVE HEPATITIS C ANTIBODY (test c ode = 4675) NON-REACTIVE INTERPRETATION HEPATITIS A: (test code = 2552) (NOTE) INTERPRETATION HEPATITIS B: (test code = 33586) (NOTE) INTERPRETATION HEPATITIS C: (test code = 29509) (NOTE) [id number] 00:00:00* Test Item Value Reference Range Interpretation Comme nts RPR RESULT (test code = 3501) NON-REACTIVE RPR TITER (test code = 3500) NOT INDIC. TITER [id number] 00:00:00* Test Item Value Reference Range Interpretation Comme nts RPR RESULT (test code = 3501) NON-REACTIVE RPR TITER (test code = 3500) NOT INDIC. TITER ACUTE HEPATITIS [id number] 00:00:00* Test Item Value Reference Range Interpretation Comme nts HEPATITIS A IgM (test code = 62098) NON-REACTIVE HEPATITIS B CORE IgM (test c ode = 4644) NON-REACTIVE HEPATITIS B SURF AG (test co de = 2739) NON-REACTIVE HEPATITIS C ANTIBODY (test c ode = 4675) NON-REACTIVE INTERPRETATION HEPATITIS A: (test code = 2552) (NOTE) INTERPRETATION HEPATITIS B: (test code = 60923) (NOTE) INTERPRETATION HEPATITIS C: (test code = 90690) (NOTE) [id number] 00:00:00* Test Item Value Reference Range Interpretation Comme nts RPR RESULT (test code = 3501) NON-REACTIVE RPR TITER (test code = 3500) NOT INDIC. TITER [id number] 00:00:00* Test Item Value Reference Range Interpretation Comme nts RPR RESULT (test code = 3501) NON-REACTIVE RPR TITER (test code = 3500) NOT INDIC. TITER HIV AB/AG COMBO RFLX [id number] 00:00:00* Test Item Value Reference Range Interpretation Comme nts HIV 1/2 4TH GEN, RFLX CONF ( test code = 3514) NON-REACTIVE CHLAMYDIA, AMPLIFIED, [id number] 00:00:00* Test Item Value Reference Range Interpretation Comme nts CHLAMYDIA, TMA (test code = 42985) NEGATIVE GC, AMPLIFIED, [id number] 00:00:00* Test Item Value Reference Range Interpretation Comme nts GONORRHEA, TMA (test code = 76194) NEGATIVE ACUTE HEPATITIS [id number] 00:00:00* Test Item Value Reference Range Interpretation Comme nts HEPATITIS A IgM (test code = 41318) NON-REACTIVE HEPATITIS B CORE IgM (test c ode = 4644) NON-REACTIVE HEPATITIS B SURF AG (test co de = 2739) NON-REACTIVE HEPATITIS C ANTIBODY (test c ode = 4675) NON-REACTIVE INTERPRETATION HEPATITIS A: (test code = 2552) (NOTE) INTERPRETATION HEPATITIS B: (test code = 02465) (NOTE) INTERPRETATION HEPATITIS C: (test code = 46927) (NOTE) ACUTE HEPATITIS [id number] 00:00:00* Test Item Value Reference Range Interpretation Comme nts HEPATITIS A IgM (test code = 41658) NON-REACTIVE HEPATITIS B CORE IgM (test c ode = 4644) NON-REACTIVE HEPATITIS B SURF AG (test co de = 2739) NON-REACTIVE HEPATITIS C ANTIBODY (test c ode = 4675) NON-REACTIVE INTERPRETATION HEPATITIS A: (test code = 2552) (NOTE) INTERPRETATION HEPATITIS B: (test code = 55834) (NOTE) INTERPRETATION HEPATITIS C: (test code = 05443) (NOTE) [id number] 00:00:00* Test Item Value Reference Range Interpretation Comme nts RPR RESULT (test code = 3501) NON-REACTIVE RPR TITER (test code = 3500) NOT INDIC. TITER [id number] 00:00:00* Test Item Value Reference Range Interpretation Comme nts RPR RESULT (test code = 3501) NON-REACTIVE RPR TITER (test code = 3500) NOT INDIC. TITER [id number] 00:00:00* Test Item Value Reference Range Interpretation Comme nts RPR RESULT (test code = 3501) NON-REACTIVE RPR TITER (test code = 3500) NOT INDIC. TITER HIV AB/AG COMBO RFLX [id number] 00:00:00* Test Item Value Reference Range Interpretation Comme nts HIV 1/2 4TH GEN, RFLX CONF ( test code = 3514) NON-REACTIVE HIV AB/AG COMBO RFLX [id number] 00:00:00* Test Item Value Reference Range Interpretation Comme nts HIV 1/2 4TH GEN, RFLX CONF ( test code = 3514) NON-REACTIVE CHLAMYDIA, AMPLIFIED, [id number] 00:00:00* Test Item Value Reference Range Interpretation Comme nts CHLAMYDIA, TMA (test code = 80165) NEGATIVE CHLAMYDIA, AMPLIFIED, [id number] 00:00:00* Test Item Value Reference Range Interpretation Comme nts CHLAMYDIA, TMA (test code = 29875) NEGATIVE GC, AMPLIFIED, [id number] 00:00:00* Test Item Value Reference Range Interpretation Comme nts GONORRHEA, TMA (test code = 75403) NEGATIVE GC, AMPLIFIED, [id number] 00:00:00* Test Item Value Reference Range Interpretation Comme nts GONORRHEA, TMA (test code = 79738) NEGATIVE ACUTE HEPATITIS [id number] 00:00:00* Test Item Value Reference Range Interpretation Comme nts HEPATITIS A IgM (test code = 92628) NON-REACTIVE HEPATITIS B CORE IgM (test c ode = 4644) NON-REACTIVE HEPATITIS B SURF AG (test co de = 2739) NON-REACTIVE HEPATITIS C ANTIBODY (test c ode = 4675) NON-REACTIVE INTERPRETATION HEPATITIS A: (test code = 2552) (NOTE) INTERPRETATION HEPATITIS B: (test code = 72413) (NOTE) INTERPRETATION HEPATITIS C: (test code = 70543) (NOTE) [id number] 00:00:00* Test Item Value Reference Range Interpretation Comme nts RPR RESULT (test code = 3501) NON-REACTIVE RPR TITER (test code = 3500) NOT INDIC. TITER [id number] 00:00:00* Test Item Value Reference Range Interpretation Comme nts RPR RESULT (test code = 3501) NON-REACTIVE RPR TITER (test code = 3500) NOT INDIC. TITER HIV AB/AG COMBO RFLX [id number] 00:00:00* Test Item Value Reference Range Interpretation Comme nts HIV 1/2 4TH GEN, RFLX CONF ( test code = 3514) NON-REACTIVE CHLAMYDIA, AMPLIFIED, [id number] 00:00:00* Test Item Value Reference Range Interpretation Comme nts CHLAMYDIA, TMA (test code = 38879) NEGATIVE GC, AMPLIFIED, [id number] 00:00:00* Test Item Value Reference Range Interpretation Comme nts GONORRHEA, TMA (test code = 15844) NEGATIVE SARS-CoV-2 (COVID-19) by RT-PCR (HIGH RISK)2020-02-11 00:00:00* Test Item Value Reference Range Interpretation Comme nts SARS-CoV-2 INTERPRETATION (t est code = 02347) POSITIVE SOURCE (test code = 22126) NOT SPECIFIED SARS-CoV-2 (COVID-19) by RT-PCR (HIGH RISK)2020-02-11 00:00:00* Test Item Value Reference Range Interpretation Comme nts SARS-CoV-2 INTERPRETATION (t est code = 03320) POSITIVE SOURCE (test code = 15954) NOT SPECIFIED SARS-CoV-2 (COVID-19) by RT-PCR (HIGH RISK)2020-02-11 00:00:00* Test Item Value Reference Range Interpretation Comme nts SARS-CoV-2 INTERPRETATION (t est code = 38274) POSITIVE SOURCE (test code = 24963) NOT SPECIFIED SARS-CoV-2 (COVID-19) by RT-PCR (HIGH RISK)2020-02-11 00:00:00* Test Item Value Reference Range Interpretation Comme nts SARS-CoV-2 INTERPRETATION (t est code = 18724) POSITIVE SOURCE (test code = 42208) NOT SPECIFIED PAP TEST, THINPREP, [id number] 00:00:00* Test Item Value Reference Range Interpretation Comme nts SOURCE: (test code = 8001) Cervical/Endocervical SLIDES: (test code = 8011) 1 LMP: (test code = 8021) 12/2017 SPECIMEN ADEQUACY: (test code = 69195) (NOTE) INTERPRETATION: (test code = 85151) NO EPITHELIAL ABNORMALITY SEE BELOW SKOOG OPERATOR: (test code = 8101) SUZANNE Adan(ASCP)IAC LOCATION: (test code = 46620) (NOTE) CPT: (test code = 8140) (NOTE) PAP TEST, THINPREP, [id number] 00:00:00* Test Item Value Reference Range Interpretation Comme nts SOURCE: (test code = 8001) Cervical/Endocervical SLIDES: (test code = 8011) 1 LMP: (test code = 8021) 12/2017 SPECIMEN ADEQUACY: (test code = 55940) (NOTE) INTERPRETATION: (test code = 55421) NO EPITHELIAL ABNORMALITY SEE BELOW SKOOG OPERATOR: (test code = 8101) SUZANNE Adan(ASCP)IAC LOCATION: (test code = 11015) (NOTE) CPT: (test code = 8140) (NOTE) PAP TEST, THINPREP, [id number] 00:00:00* Test Item Value Reference Range Interpretation Comme nts SOURCE: (test code = 8001) Cervical/Endocervical SLIDES: (test code = 8011) 1 LMP: (test code = 8021) 12/2017 SPECIMEN ADEQUACY: (test code = 36613) (NOTE) INTERPRETATION: (test code = 73481) NO EPITHELIAL ABNORMALITY SEE BELOW SKOOG OPERATOR: (test code = 8101) SUZANNE Adan(ASCP)IAC LOCATION: (test code = 89596) (NOTE) CPT: (test code = 8140) (NOTE) PAP TEST, THINPREP, [id number] 00:00:00* Test Item Value Reference Range Interpretation Comme nts SOURCE: (test code = 8001) Cervical/Endocervical SLIDES: (test code = 8011) 1 LMP: (test code = 8021) 12/2017 SPECIMEN ADEQUACY: (test code = 90786) (NOTE) INTERPRETATION: (test code = 76681) NO EPITHELIAL ABNORMALITY SEE BELOW SKOOG OPERATOR: (test code = 8101) SUZANNE Adan(ASCP)IAC LOCATION: (test code = 56956) (NOTE) CPT: (test code = 8140) (NOTE) HIV AB/AG COMBO RFLX [id number] 00:00:00* Test Item Value Reference Range Interpretation Comme nts HIV 1/2 4TH GEN, RFLX CONF ( test code = 3514) NON-REACTIVE HPV HIGH RISK WITH GENOTYPE, [id number] 00:00:00* Test Item Value Reference Range Interpretation Comme nts HPV HIGH RISK INTERP (test c ode = 61532) NEGATIVE HPV 16 (test code = 83814) NEGATIVE HPV 18 (test code = 93819) NEGATIVE HPV, HR, OTHER GENOTYPES (te st code = 80942) NEGATIVE [id number] 00:00:00* Test Item Value Reference Range Interpretation Comme nts RPR RESULT (test code = 3501) NON-REACTIVE RPR TITER (test code = 3500) NOT INDIC. TITER [id number] 00:00:00* Test Item Value Reference Range Interpretation Comme nts RPR RESULT (test code = 3501) NON-REACTIVE RPR TITER (test code = 3500) NOT INDIC. TITER GC AND CHLAMYDIA AMPLIFIED, [id number] 00:00:00* Test Item Value Reference Range Interpretation Comme nts GONORRHEA, TMA (test code = 27725) NEGATIVE CHLAMYDIA, TMA (test code = 90882) NEGATIVE HEPATITIS C REFLEX [id number] 00:00:00* Test Item Value Reference Range Interpretation Comme nts HEPATITIS C ANTIBODY (test c ode = 4675) NON-REACTIVE HIV AB/AG COMBO RFLX [id number] 00:00:00* Test Item Value Reference Range Interpretation Comme nts HIV 1/2 4TH GEN, RFLX CONF ( test code = 3514) NON-REACTIVE HIV AB/AG COMBO RFLX [id number] 00:00:00* Test Item Value Reference Range Interpretation Comme nts HIV 1/2 4TH GEN, RFLX CONF ( test code = 3514) NON-REACTIVE [id number] 00:00:00* Test Item Value Reference Range Interpretation Comme nts RPR RESULT (test code = 3501) NON-REACTIVE RPR TITER (test code = 3500) NOT INDIC. TITER HPV HIGH RISK WITH GENOTYPE, [id number] 00:00:00* Test Item Value Reference Range Interpretation Comme nts HPV HIGH RISK INTERP (test c ode = 82732) NEGATIVE HPV 16 (test code = 19666) NEGATIVE HPV 18 (test code = 47985) NEGATIVE HPV, HR, OTHER GENOTYPES (te st code = 36690) NEGATIVE HPV HIGH RISK WITH GENOTYPE, [id number] 00:00:00* Test Item Value Reference Range Interpretation Comme nts HPV HIGH RISK INTERP (test c ode = 15789) NEGATIVE HPV 16 (test code = 65198) NEGATIVE HPV 18 (test code = 74218) NEGATIVE HPV, HR, OTHER GENOTYPES (te st code = 81719) NEGATIVE [id number] 00:00:00* Test Item Value Reference Range Interpretation Comme nts RPR RESULT (test code = 3501) NON-REACTIVE RPR TITER (test code = 3500) NOT INDIC. TITER [id number] 00:00:00* Test Item Value Reference Range Interpretation Comme nts RPR RESULT (test code = 3501) NON-REACTIVE RPR TITER (test code = 3500) NOT INDIC. TITER GC AND CHLAMYDIA AMPLIFIED, [id number] 00:00:00* Test Item Value Reference Range Interpretation Comme nts GONORRHEA, TMA (test code = 76841) NEGATIVE CHLAMYDIA, TMA (test code = 25686) NEGATIVE GC AND CHLAMYDIA AMPLIFIED, [id number] 00:00:00* Test Item Value Reference Range Interpretation Comme nts GONORRHEA, TMA (test code = 00009) NEGATIVE CHLAMYDIA, TMA (test code = 15899) NEGATIVE HEPATITIS C REFLEX [id number] 00:00:00* Test Item Value Reference Range Interpretation Comme nts HEPATITIS C ANTIBODY (test c ode = 4675) NON-REACTIVE HEPATITIS C REFLEX [id number] 00:00:00* Test Item Value Reference Range Interpretation Comme nts HEPATITIS C ANTIBODY (test c ode = 4675) NON-REACTIVE HIV AB/AG COMBO RFLX [id number] 00:00:00* Test Item Value Reference Range Interpretation Comme [facility] HIV 1/2 4TH GEN, RFLX CONF ( test code = 3514) NON-REACTIVE HPV HIGH RISK WITH GENOTYPE, [id number] 00:00:00* Test Item Value Reference Range Interpretation Comme nts HPV HIGH RISK INTERP (test c ode = 86363) NEGATIVE HPV 16 (test code = 50827) NEGATIVE HPV 18 (test code = 71513) NEGATIVE HPV, HR, OTHER GENOTYPES (te st code = 15165) NEGATIVE [id number] 00:00:00* Test Item Value Reference Range Interpretation Comme nts RPR RESULT (test code = 3501) NON-REACTIVE RPR TITER (test code = 3500) NOT INDIC. TITER [id number] 00:00:00* Test Item Value Reference Range Interpretation Comme nts RPR RESULT (test code = 3501) NON-REACTIVE RPR TITER (test code = 3500) NOT INDIC. TITER HEPATITIS C REFLEX [id number] 00:00:00* Test Item Value Reference Range Interpretation Comme nts HEPATITIS C ANTIBODY (test c ode = 4675) NON-REACTIVE GC AND CHLAMYDIA AMPLIFIED, [id number] 00:00:00* Test Item Value Reference Range Interpretation Comme nts GONORRHEA, TMA (test code = 32008) NEGATIVE CHLAMYDIA, TMA (test code = 10733) NEGATIVE
[2023-10-31 23:01] LABS: Absolute Basophils 0.1 K/uL (0-0.5); Absolute Eosinophils 0.1 K/uL (0-0.5); Absolute Lymphocytes (CBC) 3.3 K/uL (0.7-4.9); Absolute Monocytes 0.7 K/uL (0.1-1.3); Absolute Neutrophil 6.6 K/uL (1.8-8.0); Basophils % 0.5 % (0-1.3); Eosinophils % 0.7 % (0-4.4); Hematocrit 44.5 % (36.0-45.0); Hemoglobin 14.8 g/dL (12.0-15.0); Lymphocytes % 30.3 % (15.3-44.8); MCHC 33.2 g/dL (32.0-36.0); MCV 87.4 fL (80-100); MPV 8.9 fL (7.6-11.3); Monocytes % 6.9 % (3.3-12.3); Neutrophils % 61.6 % (41.7-73.7); Platelets 380 thou/uL (152-406); RBC Red Blood Cell Count 5.09 M/uL (3.86-4.86); Red Cell Distribution Width 13.6 % (12.1-15.2)
[2023-10-31] MEDS ORDERED: ONDANSETRON 4 MG/2 ML VIAL ONE (23:07)
[2023-10-31 23:08] LABS: Specific Gravity 1.025 (1.005-1.030); Sqamous Epithelial <5 /HPF (None Seen); Urine Bacteria None Seen /HPF (<20); Urine Bilirubin NEGATIVE (Negative); Urine Blood 2+ (Negative); Urine Clarity Clear (Clear); Urine Color Light-Yellow (Yellow); Urine Culture Reflex Order NOT NEEDED; Urine Glucose NEGATIVE (Negative); Urine Ketones 1+ (Negative); Urine Microscopic Reflex YN ORDER UMIC; Urine Mucus Slight /HPF (None Seen); Urine Nitrite NEGATIVE (Negative); Urine Protein NEGATIVE (Negative); Urine RBC <5 /HPF (None Seen); Urine Urobilinogen Normal (Normal); Urine WBC <5 /HPF (<5); Urine WBC Clump Rare /HPF (None Seen); Urine pH 6.5 (5.0-7.0)
[2023-10-31] MEDS ORDERED: FAMOTIDINE 20 MG/2 ML VIAL IV ONE (23:08)
[2023-10-31] MEDS ORDERED: KETOROLAC 30 MG/ML INJ ONE (23:08)
[2023-10-31] MEDS ORDERED: NA CHLORIDE 0.9% 1,000 ML ONE (23:08)
[2023-10-31 23:09] LABS: Specific Gravity 1.025 (1.005-1.030)
[2023-10-31 23:19] LABS: Albumin 3.9 g/dL (3.4-5.0); Albumin/Globulin Ratio 0.9 (1.1-1.8); Bilirubin Total 0.3 mg/dL (0.2-1.0); Globulin 4.2 g/dL (2.3-3.5); Protein, Total 8.1 g/dL (6.4-8.2)
[2023-11-01] MEDS ORDERED: MAGNES/ALUMIN/SIMET 30ML UCUP ONE (00:16)
[2023-11-01] MEDS ORDERED: DICYCLOMINE HCL 10 MG CAP ONE (00:16)
[2023-11-01] MEDS ORDERED: LIDOCAINE VISCOUS 2% 10ML ORAL SOLN ONE (00:16)
--- NOTE | 2023-11-01 00:30 | EDPHYS ---
Physician Documentation [facility] Name: Maria C Arellano Age: 28 yrs Sex: Female : 1995 Arrival Date: 10/31/2023 Time: 22:18 Bed 5 Private MD: ED Physician Link Tristan HPI: 10/30 23:00 This 28 yrs old Female presents to ER via Ambulatory with complaints of cp Abdominal Pain. 23:00 The patient presents with abdominal pain in the upper abdomen. cp 23:00 Onset: The symptoms/episode began/occurred today. The symptoms do not radiate. cp Associated signs and symptoms: Pertinent positives: chest pain, nausea, Pertinent negatives: constipation, diarrhea, fever, vomiting. The symptoms are described as constant. Severity of pain: in the emergency department the pain is unchanged despite home interventions. 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 - Infectious Disease History:: Denies. - Social history:: Smoking status: Patient denies any tobacco usage or history of. ROS: 23:05 Constitutional: Negative for body aches, chills, fever, poor PO intake, cp 23:05 Eyes: Negative for injury, pain, redness, and discharge, cp 23:05 ENT: Negative for drainage from ear(s), ear pain, sore throat, difficulty swallowing, difficulty handling secretions, 23:05 Cardiovascular: Positive for chest pain, 23:05 Respiratory: Negative for cough, shortness of breath, wheezing, 23:05 Abdomen/GI: Positive for abdominal pain, nausea, of the upper abdomen, Negative for vomiting, diarrhea, constipation, 23:05 Back: Negative for pain at rest, pain with movement, 23:05 : Negative for urinary symptoms, pelvic pain, vaginal bleeding, 23:05 Neuro: Negative for altered mental status, dizziness, weakness, 23:05 All other systems are negative, Exam: 23:10 Constitutional: The patient appears in no acute distress, alert, awake, non-toxic, well cp developed, well nourished, uncomfortable, 23:10 Head/Face: Normocephalic, atraumatic. cp 23:10 Eyes: Periorbital structures: appear normal, Conjunctiva: normal, no exudate, no injection, Sclera: no appreciated abnormality, Lids and lashes: appear normal, bilaterally, 23:10 ENT: External ear(s): are unremarkable, Nose: is normal, Mouth: Lips: moist, Oral mucosa: pink and intact, moist, Posterior pharynx: is normal, airway is patent, no erythema, no exudate, 23:10 Neck: ROM/movement: is normal, is supple, without pain, no range of motions limitations, 23:10 Chest/axilla: Inspection: normal, 23:10 Cardiovascular: Rate: normal, Rhythm: regular, 23:10 Respiratory: the patient does not display signs of respiratory distress, Respirations: normal, no use of accessory muscles, no retractions, labored breathing, is not present, Breath sounds: are clear throughout, no decreased breath sounds, no stridor, no wheezing, 23:10 Abdomen/GI: Inspection: abdomen appears normal, Bowel sounds: active, all quadrants, Palpation: soft, in all quadrants, moderate abdominal tenderness, in the epigastric area and right upper quadrant, rebound tenderness, is not appreciated, involuntary guarding, is not appreciated, 23:10 Back: CVA tenderness, is absent, 23:10 Neuro: Orientation: to person, place \T\ time. Mentation: is normal, Motor: moves all fours, strength is normal, Vital Signs: 22:39 BP 134 / 82; Pulse 64; Resp 15; Temp 97.9; Pulse Ox 100% ; Weight 79.38 kg; Height 5 vc1 ft. 3 in. ; Pain 9/10; 23:53 BP 130 / 92; Pulse 82; Resp 16; Pulse Ox 100% on R/A; jb4 22:39 Body Mass Index 31.00 (79.38 kg, 160.02 cm) vc1 22:39 Pain Scale: Adult vc1 MDM: 22:37 Patient medically screened. cp 23:00 Differential diagnosis: cholecystitis, Cholelithiasis, gastritis, non-specific abd cp pain, pancreatitis, Peptic Ulcer Disease, Perf. Duodenal Ulcer, Perf. Gastric Ulcer, Ureterolithiasis, urinary tract infection. 10/31 00:28 Data reviewed: vital signs, nurses notes, lab test result(s), radiologic studies, cp ultrasound, and as a result, I will discharge patient. 00:28 I considered the following discharge prescriptions or medication management in the emergency department Medications were administered in the Emergency Department. See MAR. Counseling: I had a detailed discussion with the patient and/or guardian regarding the historical points, exam findings, and any diagnostic results supporting the discharge/admit diagnosis, lab results, radiology results, the need for outpatient follow up, a general surgeon, to return to the emergency department if symptoms worsen or persist or if there are any questions or concerns that arise at home. Response to treatment: the patient's symptoms have markedly improved after treatment, and as a result, I will discharge patient. Special discussion: Based on the patient's Hx, exam, and Dx evaluation, there is no indication for emergent surgery or inpatient Tx. It is understood by the patient/guardian that if the Sx's persist or worsen they need to return immediately for re-evaluation. 10/30 22:46 Order name: CBC with Diff; Complete Time: 23:47 cp 10/30 23:47 Interpretation: Normal except: RBC 5.09. cp 10/30 22:46 Order name: CMP; Complete Time: 23:47 cp 10/30 23:53 Interpretation: Normal except: K 3.0; GLUC 135; GFR 79; GLOB 4.2; A/G 0.9. cp 10/30 22:46 Order name: Lipase; Complete Time: 23:47 cp 10/30 22:46 Order name: Test, Urine; Complete Time: 23:47 cp 10/30 22:46 Order name: Urinalysis w/ reflexes; Complete Time: 23:47 cp 10/30 23:53 Interpretation: Normal except: UKET 1+; UBLD 2+. cp 10/30 22:46 Order name: Abdomen Limited US cp 10/30 22:46 Order name: IV Saline Lock; Complete Time: 22:47 cp 10/30 22:46 Order name: Labs collected and sent; Complete Time: 22:47 cp 10/30 22:46 Order name: NPO; Complete Time: 22:47 cp Administered Medications: 10/30 23:22 Drug: NS 0.9% IV 1000 ml IV at 1 bolus Per protocol; 1000 mL bolus Route: IV; Rate: 1 jb4 bolus; Site: right antecubital; 23:22 Drug: Famotidine IVP 20 mg IVP once; dilute with 10 mL 0.9% NaCl; give over 2 minutes jb4 Route: IVP; Site: right antecubital; 23:22 Drug: TORadol - Ketorolac IVP 15 mg IVP once Route: IVP; Site: right antecubital; jb4 23:22 Drug: Ondansetron IVP 4 mg IVP once; over 2 minutes Route: IVP; Site: right antecubital;jb4 10/31 00:23 Drug: GI Cocktail without - (Maalox PO 30 ml, Lidocaine Mucous Membrane 2 % 15 jb4 ml) PO once Route: PO; 00:23 Drug: Dicyclomine PO 20 mg PO once Route: PO; jb4 Disposition Summary: 11/01/23 00:29 Discharge Ordered Notes: Location: Home cp Problem: new cp Symptoms: have improved cp Condition: Stable cp Diagnosis - Other cholelithiasis without obstruction cp Followup: cp - With: Maxx Espino MD - When: 2 - 3 days - Reason: Recheck today's complaints Discharge Instructions: - Discharge Summary Sheet cp - Cholelithiasis cp Forms: - Medication Reconciliation Form cp - Thank You Letter cp - Antibiotic Education cp - Prescription Opioid Use cp - Patient Portal Instructions cp - Leadership Thank You Letter cp Prescriptions: - Ibuprofen 800 mg Oral Tablet - take 1 tablet ORAL route every 8 hours As needed take with food; 30 tablet; cp Refills: 0, Product Selection Permitted - Zofran 4 mg Oral Tablet - take 1 tablet ORAL route every 12 hours As needed; 20 tablet; Refills: 0, cp Product Selection Permitted - dicyclomine 20 mg Oral tablet - take 1 tablet ORAL route 4 times per day; 30 tablet; Refills: 0, Product cp Selection Permitted Addendum: 11/02/2023 01:19 Co-signature as Attending Physician, Link Tristan MD I reviewed the patient's care r t provided by the Advanced Practice Provider and agree with the diagnosis and treatment plan. Signatures: Dispatcher [employer] EDOH Mook Ryan PA PA cp Arias Paulino RN RN jb4 Margareth Macdonald RN RN vc1 Link Tristan MD MD rt Corrections: (The following items were deleted from the chart) 10/30 22:47 22:47 Abdomen Limited+[id number].RAD.BRZ ordered. EDMS EDMS 10/31 00:29 00:29 Nausea with vomiting, unspecified cp cp 11/01 00:22 04 23:00 The patient presents with abdominal pain cp cp
--- NOTE | 2023-11-01 00:30 | ER ---
Nurse's Notes [facility] Name: Maria C Arellano Age: 28 yrs Sex: Female : 1995 Arrival Date: 10/31/2023 Time: 22:18 Bed 5 Private MD: Diagnosis: Other cholelithiasis without obstruction Presentation: 10/30 22:39 Chief complaint: Patient states: Upper abdominal pain. No N/V/D. Coronavirus screen: At vc1 this time, the client does not indicate any symptoms associated with coronavirus-19. Ebola Screen: Patient negative for fever greater than or equal to 101.5 degrees Fahrenheit, and additional compatible Ebola Virus Disease symptoms Patient denies exposure to infectious person. Patient denies travel to an Ebola-affected area in the 21 days before illness onset. No symptoms or risks identified at this time. Initial Sepsis Screen: Does the patient meet any 2 criteria? No. Patient's initial sepsis screen is negative. Does the patient have a suspected source of infection? No. Patient's initial sepsis screen is negative. Risk Assessment: Do you want to hurt yourself or someone else? Patient reports no desire to harm self or others. Onset of symptoms was October 31, 2023 at 19:30. 22:39 Method Of Arrival: Ambulatory vc1 22:39 Acuity: REYNOLD 3 vc1 Triage Assessment: 22:41 General: Appears in no apparent distress. uncomfortable, Behavior is cooperative, vc1 crying. Pain: Complains of pain in epigastric area Pain does not radiate. Pain currently is 9 out of 10 on a pain scale. Quality of pain is described as aching, Pain began suddenly, 3 hours ago. Is continuous, Noted to be crying, guarding. Cardiovascular: No deficits noted. Respiratory: Airway is patent Respiratory effort is even, unlabored, Respiratory pattern is regular, symmetrical. GI: Abdomen is flat, non-distended, Reports epigastric pain, Patient currently denies nausea, vomiting. 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 - Infectious Disease History:: Denies. - Social history:: Smoking status: Patient denies any tobacco usage or history of. Screenin/07 00:40 [facility] ED Fall Risk Assessment (Adult) History of falling in the last 3 months, jb4 including since admission No falls in past 3 months (0 pts) Confusion or Disorientation No (0 pts) Intoxicated or Sedated No (0 pts) Impaired Gait No (0 pts) Mobility Assist Device Used No (0 pt) Altered Elimination No (0 pt) Score/Fall Risk Level 0 - 2 = Low Risk Oriented to surroundings, Maintained a safe environment. Abuse screen: Denies threats or abuse. Nutritional screening: No deficits noted. Tuberculosis screening: No symptoms or risk factors identified. Assessment: 10/30 23:51 General: Appears in no apparent distress. uncomfortable, Behavior is calm, cooperative, jb4 appropriate for age. Pain: Complains of pain in abdomen Pain does not radiate. Pain currently is 8 out of 10 on a pain scale. Neuro: Level of Consciousness is awake, alert, obeys commands, Oriented to person, place, time, situation. Cardiovascular: Patient's skin is warm and dry. Respiratory: Airway is patent Respiratory effort is even, unlabored, Respiratory pattern is regular, symmetrical. GI: No signs and/or symptoms were reported involving the gastrointestinal system. Abd is soft X 4 quads Abd is non tender in suprapubic area, left upper quadrant, right lower quadrant and left lower quadrant Abdomen is tender to palpation in epigastric area, umbilical area and right upper quadrant. : No signs and/or symptoms were reported regarding the genitourinary system. EENT: No signs and/or symptoms were reported regarding the EENT system. Derm: Skin is intact, Skin is pink, warm \T\ dry. Musculoskeletal: Circulation, motion, and sensation intact. Range of motion: intact in all extremities. Vital Signs: 22:39 BP 134 / 82; Pulse 64; Resp 15; Temp 97.9; Pulse Ox 100% ; Weight 79.38 kg; Height 5 vc1 ft. 3 in. ; Pain 9/10; 23:53 BP 130 / 92; Pulse 82; Resp 16; Pulse Ox 100% on R/A; jb4 22:39 Body Mass Index 31.00 (79.38 kg, 160.02 cm) vc1 22:39 Pain Scale: Adult vc1 ED Course: 22:19 Patient arrived in ED. jj6 22:20 Mook Ryan PA is PHCP. cp 22:20 Link Tristan MD is Attending Physician. cp 22:40 Triage completed. vc1 22:41 Arm band placed on left wrist. vc1 22:42 Patient has correct armband on for positive identification. Placed in gown. Bed in low vc1 position. 23:06 Abdomen Limited US In Process Unspecified. EDMS 23:51 Arias Paulino, RN is Primary Nurse. jb4 10/31 00:28 Maxx Espino MD is Referral Physician. cp 00:40 Provided Education on: discharge instructions. jb4 00:40 No provider procedures requiring assistance completed. IV discontinued, intact, jb4 bleeding controlled, No redness/swelling at site. Pressure dressing applied. Administered Medications: 10/30 23:22 Drug: NS 0.9% IV 1000 ml IV at 1 bolus Per protocol; 1000 mL bolus Route: IV; Rate: 1 jb4 bolus; Site: right antecubital; 23:22 Drug: Famotidine IVP 20 mg IVP once; dilute with 10 mL 0.9% NaCl; give over 2 minutes jb4 Route: IVP; Site: right antecubital; 23:22 Drug: TORadol - Ketorolac IVP 15 mg IVP once Route: IVP; Site: right antecubital; jb4 23:22 Drug: Ondansetron IVP 4 mg IVP once; over 2 minutes Route: IVP; Site: right antecubital;jb4 10/31 00:23 Drug: GI Cocktail without - (Maalox PO 30 ml, Lidocaine Mucous Membrane 2 % 15 jb4 ml) PO once Route: PO; 00:23 Drug: Dicyclomine PO 20 mg PO once Route: PO; jb4 Outcome: 00:29 Discharge ordered by . cp 00:40 Discharged to home ambulatory, jb4 00:40 Condition: stable 00:40 Discharge instructions given to patient, Instructed on discharge instructions, follow up and referral plans. medication usage, Demonstrated understanding of instructions, follow-up care, medications, Prescriptions given X 3, 00:42 Patient left the ED. jb4 Signatures: Dispatcher [employer] Mook Thibodeaux PA PA cp Bryson, James, RN RN jb4 Hillary Mancilla jj6 Margareth Macdonald RN RN vc1
[2023-11-01 09:12] VITALS: BP 130/92; TEMP 97.9; O2SAT 100
--- NOTE | 2023-11-02 12:26 | RAD REPORT ---
EXAM DESCRIPTION: US - Abdomen Exam Limited - 10/31/2023 11:04 pm CLINICAL HISTORY: Upper abdomen pain TECHNIQUE: Real-time and de [place] santos scale sonographic imaging of the gallbladder and common bile duct COMPARISON: None available for comparison FINDINGS: Gallbladder: Large gallstone. No gallbladder wall thickening or pericholecystic fluid. Dis tended gallbladder. Common bile duct: 4.7 mm in diameter. There is no intrahepatic biliary ductal dilatation. IMPRESSION: Distended gallbladder with large gallstone. No ultrasound signs of acute cholecystitis o r biliary ductal dilatation. Electronically signed by: Salazar Lewis MD 10/31/2023 11:17 PM CDT Due to temporary technical issues with the PACS/Fluency reporting system, reports are being signed by the in house radiologist without review as a courtesy to ensure prompt reporting. The interpreting r adiologist is fully responsible for the content of the report.
== END 2023-11-01 00:42 | disposition home or self-care (01) ==
LOC: ER 22:18
DX: K80.80 Other cholelithiasis without obstruction (principal)
CPT/HCPCS: 85025; 81001; 36415; 81025; 83690; 80053; 76705; 96375; 96374; 99284; J2405; J7030